=== PATIENT | male | born 1960 | race Caucasian/White ===

== ENCOUNTER → 2016-09-16 | Outpatient (CLI) | payer BC ==
[~2016-09-16] MED LIST: DOCU100C PO; GABA-222 PO; METH750T3 PO; OXYC-532 PO; PANT40TA32 PO
--- NOTE | 2016-09-16 12:30 | DI ---
Indication: ITS.REASON: R91.8 LUNG MASS PROCEDURE: PET/CT SKULL TO THIGH INITIAL: Encounter: Initial Comparison: CT abdomen and pelvis dated June 05, 2014 Technique: 15.6 mCi of F-18 FDG was administered intravenously via the right antecubital fossa. Approximately 60 minutes later 3D PET/CT imaging was performed from the skull base through the mid thighs. The CT images are for attenuation correction purposes only. Findings: No areas of abnormal uptake seen within the skull base or neck. Physiologic regions of uptake. Areas of artifact from dental restorations. Paraseptal emphysema. There is a spiculated 3 cm mass with internal low attenuation and a punctate focus of high attenuation possibly representing calcification in the right upper lobe. This mass does not show any significant FDG uptake above the mediastinal background. SUV max within this region is less than one. No additional pulmonary nodules or masses appreciated. No axillary or mediastinal adenopathy. Expected myocardial uptake. Normal homogeneous liver uptake. Expected genitourinary and bowel uptake. No areas of abnormal skeletal uptake seen. Degenerative and postoperative changes in the lumbar spine. Impression: No significant metabolic activity within the spiculated right upper lobe mass. The morphology remains concerning to me and I would recommend a biopsy to exclude a slow growing neoplasm or metastasis. Benign etiologies including hamartoma are within the differential. Review of the outside diagnostic CT would be helpful to evaluate for any signs of internal fat attenuation within the lesion as there is suggestion of lower than normal attenuation on today's CT images. .
== END ==
LOC: IMA 08:30
PROVIDERS: ATTEND Physician Assistant
DX: R91.8 Other nonspecific abnormal finding of lung field (principal)

== ENCOUNTER 2016-09-30 08:29 | Outpatient (CLI) | payer BC ==
[~2016-09-30] VITALS: Ht 180.3 cm; Wt 68.8 kg
[2016-09-30] VITALS (9 sets, daily range): BP systolic 107–136; BP diastolic 65–84; PULSE 66–83; RESP 16–18; TEMP 98.2–98.5; O2SAT 99–100; Ht 180.3 cm; Wt 68.8 kg
--- NOTE | 2016-09-30 08:35 | NUR ---
Admit Pt admitted at this time via ambulatory status. Family present at this time. VS stable on RA. ID band in place. Call light w/in reach, side rails up X2, bed alarm on.
[2016-09-30] MEDS ORDERED: ACETAMINOPHEN 325 MG TABLET PO PRN (08:45)
[2016-09-30] MEDS ORDERED: LR 1,000 ML IV SCH (08:45)
[2016-09-30] MEDS ORDERED: LIDOCAINE 1% (10mg/ml) 5ml VIAL ONE (10:26)
[2016-09-30 10:43] LABS: INR 1.01 (0.76-1.04)
--- NOTE | 2016-09-30 11:05 | NUR ---
To Radiology Pt off unit at this time via wheelchair.
[2016-09-30] MEDS ORDERED: IOHEXOL 300 MG/ML 75ml INJECTION ONE (11:06)
[2016-09-30] MEDS ORDERED: NORMAL SALINE 100 ML ONE (11:06)
[2016-09-30] MEDS ORDERED: SALINE FLUSH 10ml SYRINGE ONE (11:06)
--- NOTE | 2016-09-30 11:12 | NUR ---
CM CM IN TO VISIT WITH PT. HE IS ALERT AND ORIENTED. HE WAS WITNESSED BY THIS CM TO AMBULATE IN [facility] WITH [facility]. HE DENIES DC NEEDS. HE PLANS TO RETURN HOME. LACE SCORE IS 0. HE IS GIVEN CM CONTACT INFORMATION. Addendum: 09/30/16 at 1113 by JULISSA ARIZMENDI RN Amended: Links added.
--- NOTE | 2016-09-30 11:48 | DI ---
Indication: Further evaluation of the patient's known right upper lobe mass prior to planned biopsy, as prior diagnostic CT imaging was not made available for comparison and prior PET raised questions of the nature of the mass. Procedure: CT CHEST W/WO CONTRAST: Encounter: Subsequent Comparison: PET/CT 09/16/2016 Technique: Axial CT images were performed through the chest before and after the administration of intravenous contrast. Coronal and sagittal two-dimensional reformats. Automated Exposure Control and Iterative Reconstruction dose reducing techniques were utilized. Contrast: Omnipaque 300 100 mL Findings: Lungs and airways: Redemonstration of a spiculated bilobed 3.2 x 1.7 cm right upper lobe mass which do not previously demonstrate hypermetabolic FDG activity. There are however again suspicious spiculations extending to the pleural surface. Trace central calcification is evident. On the prior PET CT, there was question of some internal fat, however this is not definitively demonstrated on this examination. No central hypoattenuation to suggest significant necrosis. No additional pulmonary nodules identified. Mild bilateral upper lobe predominant centrilobular emphysema. No endoluminal lesion. Pleura: No pleural effusions or pneumothorax. Heart and mediastinum: The visualized thyroid gland appears normal. No mediastinal or hilar lymphadenopathy. The visualized esophagus appears normal. The heart is normal in size without pericardial effusion. The great vessels of the thorax are within normal limits. Abdomen: No acute abnormality of the visualized upper abdominal organs. Osseous structures and soft tissues: No axillary lymphadenopathy. No acute osseous abnormality. Mild degenerative disc disease of the thoracic spine. Impression: 3.2 cm spiculated right upper lobe mass with spiculations extending to the pleural surface. Central calcification noted raising consideration for old granulomatous disease, however general appearance and spiculations remain concerning for malignancy, although lack of hypermetabolic FDG activity on the prior PET remains reassuring. No significant fat appreciated to suggest hamartoma. Findings could also potentially represent carcinoid. We will proceed with biopsy for pathologic diagnosis. .
--- NOTE | 2016-09-30 11:48 | NUR ---
pt on CT table for lung bx per Dr. Hollis. Will monitor vitals, b/p 111/75 resp 20 sp02 100% on 2l heart rate 76 sinus. pt denies any pain.
--- NOTE | 2016-09-30 12:00 | NUR ---
Procedure started. pt tolerating well. b/p 126/76 resp 22 heart rate 82 sinus sp02 100%.
--- NOTE | 2016-09-30 12:13 | NUR ---
Procedure completed. pt tolerated well. b/p 123/79 resp 16 sp02 100% heart rate 85. pt denies any pain. will tranport to room 108 per w/c.
--- NOTE | 2016-09-30 12:19 | NUR ---
report called [facility]. transporting pt now
--- NOTE | 2016-09-30 12:23 | NUR ---
Back to room Pt back to room at this time via wheelchair. VS stable on RA. Pt denies pain and nausea. Post op VS going. Will continue to monitor.
--- NOTE | 2016-09-30 13:48 | DI ---
Indication: ITS.REASON: POST LUNG BX IMMEDIATE Procedure: CHEST 1 VIEW: Encounter: Subsequent Comparison: Preceding CT-guided biopsy imaging Technique: A single AP chest Was obtained. Findings: Lungs and airways: Normal lung volumes. Registration of patient's known right upper lobe mass. No other focal airspace consolidation. Normal pulmonary vasculature. Pleura: No pleural effusion or pneumothorax. Heart and mediastinum: The cardiomediastinal silhouette and great vessels are within normal limits. Osseous structures and soft tissues: No acute osseous abnormality is seen. Impression: No pneumothorax identified status post biopsy of the patient's known right upper lobe mass. Follow-up will be obtained in one hour (or sooner as clinically indicated) to ensure lack of development. .
--- NOTE | 2016-09-30 13:49 | DI ---
Indication: ITS.REASON: POST LUNG BX 1 HR Procedure: CHEST 1 VIEW: Encounter: Subsequent Comparison: Prior postbiopsy chest radiograph of the same day Technique: A single frontal chest radiograph was obtained. Findings: Lungs and airways: Normal lung volumes. Redemonstration of patient's known right upper lobe mass. No other focal airspace consolidation. Normal pulmonary vasculature. Pleura: No pleural effusion or pneumothorax. Heart and mediastinum: The cardiomediastinal silhouette and great vessels are within normal limits. Osseous structures and soft tissues: No acute osseous abnormality is seen. Impression: Unchanged known previously biopsied right upper lobe mass with no developing pneumothorax appreciated. One additional follow-up in one hour will be obtained prior to discharge. .
--- NOTE | 2016-09-30 14:11 | DI ---
Indication: ITS.REASON: R91.8OTHER NONSPECIFIC ABNORMAL FINDINGS Procedure: CT BIOPSY, LUNG OR MEDIASTINUM: Encounter: Subsequent Comparison: Chest CT of the same day, prior PET/CT Technique/Procedure: The procedure and risks were discussed with the patient including but not limited to bleeding, infection, and pneumothorax. All questions were answered. Verbal and written consent was obtained. The patient was placed prone on the CT table and the right upper lobe mass was localized with CT. The skin of the right upper back was prepped and draped in the usual sterile manner. 1% lidocaine was used for both superficial and deep local anesthesia. Then, under directed CT guidance, a coaxial biopsy needle was advanced to the margin of the mass and four core biopsy specimens were obtained. The specimens appear grossly adequate. The needle was removed while injecting autologous blood. Final CT imaging demonstrated no significant pneumothorax. The patient tolerated the procedure well without immediate complication. Findings/ Impression: Successful CT-guided biopsy of the patient's right upper lobe mass with no significant postbiopsy pneumothorax identified. .
--- NOTE | 2016-09-30 14:42 | DI ---
Indication: ITS.REASON: 2 HR POST BIOPSY Procedure: CHEST 1 VIEW: Encounter: Subsequent Comparison: Prior chest radiograph six of the same day Technique: A single frontal chest radiograph was obtained. Findings: Lungs and airways: Normal lung volumes. Unchanged known right upper lobe mass. No other focal airspace consolidation. Normal pulmonary vasculature. Pleura: No pleural effusion or pneumothorax. Heart and mediastinum: The cardiomediastinal silhouette and great vessels are within normal limits. Osseous structures and soft tissues: No acute osseous abnormality is seen. Impression: No developing pneumothorax status post biopsy of the patient's right upper lobe mass. Patient will be discharged to home. .
--- NOTE | 2016-09-30 15:03 | NUR ---
Discharge Pt discharged at this time via ambulatory status through the main entrance in the company of an adult. IV catheter DC'd prior to discharge, catheter tip intact. VS stable on RA. Pt denies pain and nausea. Discharge packet and instructions given and gone over with Pt. This RN discussed medications, activity, diet, and restrictions with Pt. Pt verbalized understanding.
--- NOTE | 2016-10-01 15:18 | NUR ---
ATTEMPTED POST HOSPITAL FOLLOW UP #1, FEMALE ANSWERED PHONE AND PATIENT IS SLEEPING. WILL RETURN CALL TOMORROW.
== END 2016-09-30 15:01 | disposition home or self-care (01) ==
LOC: IMA.BED 08:29 → SRG 08:30 → IMA.BED 15:01
PROVIDERS: ATTEND Radiology Diagnostic Radiology
DX: J85.0 Gangrene and necrosis of lung (principal); Z87.891 Personal history of nicotine dependence; R91.8 Other nonspecific abnormal finding of lung field
CPT/HCPCS: 32405; 36415; 71010; 71270; 77012; 85049; 85610; J7050; J7120; Q9967